=== PATIENT | female | born 1935 | race Caucasian/White ===

== ENCOUNTER → 2017-01-06 | Outpatient (CLI) | payer OTHER | END | disposition home or self-care (01) | LOC: LAB.O 15:23 | PROVIDERS: ATTEND Nurse Practitioner Family | DX: R07.9 Chest pain, unspecified (principal) ==

== ENCOUNTER → 2017-01-23 | Outpatient (CLI) | payer OTHER | END | disposition home or self-care (01) | LOC: SL 20:30 | PROVIDERS: ATTEND Obstetrics & Gynecology | DX: G47.33 Obstructive sleep apnea (adult) (pediatric) (principal) ==

== ENCOUNTER 2018-03-13 13:06 | Emergency (ER) | payer OTHER ==
--- NOTE | 2018-03-13 13:24 | ED.PDOC ---
History of Present Illness - General Chief Complaint: Trauma Stated Complaint: Lac above R eye, after fall Time Seen by Provider: 03/13/18 13:20 Source: patient, RN notes reviewed, EMS notes reviewed Additional Information: 83 YEAR OLD FELL GROUND LEVEL ON THE ROAD WHILE SHE WAS ATTEMPTED TO JUMP OVER A PUDDLE OF WATER REPORTS NO LOC HAS MODERATE HEADACHE NO NECK PAIN NO NUMBNESS TINGLING - History of Present Illness Improving Factors: nothing Worsening Factors: nothing Associated Symptoms: denies symptoms Allergies/Adverse Reactions: Allergies Codeine Allergy (Verified 02/21/14 18:56) Morphine Allergy (Verified 02/21/14 18:56) Penicillins Allergy (Verified 02/21/14 18:56) Home Medications: Ambulatory Orders Cephalexin Monohydrate [Keflex Cap] 500 mg PO Q6HRS #20 cap 02/21/14 Tramadol HCl [Ultram] 25 mg PO Q4-6H PRN #20 tab 02/21/14 Cephalexin Monohydrate [Keflex] 500 mg PO Q8HR #30 cap 03/13/18 Review of Systems - Review of Systems Constitutional: States: no symptoms reported EENTM: States: no symptoms reported Respiratory: States: no symptoms reported Cardiology: States: no symptoms reported Gastrointestinal/Abdominal: States: no symptoms reported Genitourinary: States: no symptoms reported Musculoskeletal: States: no symptoms reported Skin: States: no symptoms reported Neurological: States: no symptoms reported Endocrine: States: no symptoms reported Hematologic/Lymphatic: States: no symptoms reported Past Medical History (General) - Patient Medical History Hx Diabetes: Yes Hx Cancer: Yes Family Medical History - Family History Mother Living Status: Physical Exam - Physical Exam General Appearance: Alert, Comfortable Eye Exam: bilateral normal, bilateral abnormal EOM, bilateral abnormal pupil, bilateral conjunctivae pale, bilateral scleral icterus, bilateral other Ears, Nose, Throat: hearing grossly normal, normal ENT inspection, normal pharynx, other - THERE IS A POST TRAUMATIC HEMATOMA OVER THE RIGHT FORHEAD EXTENDING OVER THE RIGHT EYE BROW EXTRA OCULAR MOVEMENTS NORMAL NO SUB Q AIR NO DIPLOPIA AT THIS TIME Neck: non-tender, full range of motion, supple Respiratory: chest non-tender, lungs clear, normal breath sounds, no respiratory distress, no accessory muscle use Cardiovascular/Chest: normal peripheral pulses, regular rate, rhythm, no edema, no gallop, no JVD, no murmur Gastrointestinal/Abdominal: normal bowel sounds, non tender, soft, no organomegaly, no pulsatile mass, abnormal bowel sounds Back Exam: normal inspection, no CVA tenderness, no vertebral tenderness 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 Copy, Patient Portal Self Enrollment Instructions: DI for Trauma Diet: resume usual diet Referrals: Estuardo French MD [Primary Care Provider] - 1-2 Weeks Home Medications: Ambulatory Orders Cephalexin Monohydrate [Keflex Cap] 500 mg PO Q6HRS #20 cap 02/21/14 Tramadol HCl [Ultram] 25 mg PO Q4-6H PRN #20 tab 02/21/14 Cephalexin Monohydrate [Keflex] 500 mg PO Q8HR #30 cap 03/13/18 Additional Instructions: PLEASE DO NOT BLOW YOUR NOSE TAKE ANTIBIOTICS PRESCRIBED NEED ENT DR WAN ( SHE HAS SEEN HIM IN THE PAST AND OPHTHALMOLOGICAL FOLLOW UP IN A WEEK
--- NOTE | 2018-03-13 14:22 | CT ---
Study: CT of the Head. Indication: TRAUMA Technique: Axial CT images of the head were acquired without intravenous contrast. This exam was performed according to our departmental dose-optimization program, which includes automated exposure control, adjustment of the mA and/or kV according to patient size and/or use of iterative reconstruction technique. Comparison: None. Findings: Partial visualization of a buckle fracture of the inferior right orbital floor with inferior displacement of fracture fragments by 4 mm. Intramuscular hematoma of the right inferior rectus muscle suspected. Extensive surrounding right periorbital soft tissue swelling and mild subcutaneous emphysema. The right globe appears intact. Hemorrhage noted throughout the majority of the right maxillary sinus. No acute ischemia, acute hemorrhage, mass, mass effect, midline shift, or extra-axial fluid collection identified by CT. Ventricles are normal in configuration without hydrocephalus. Patchy hypoattenuation of the periventricular and subcortical white matter noted. This is nonspecific but most consistent with chronic microvascular ischemic change. Global parenchymal volume loss and intracranial atherosclerosis noted as well. Paranasal sinuses are adequately aerated. Mastoid air cells are adequately aerated. Osseous structures and soft tissues are unremarkable. Impression: 1. No acute intracranial abnormality by CT. 2. Senescent changes. 3. Right orbital floor fracture and intramuscular hematoma right inferior rectus muscle. 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
--- NOTE | 2018-03-13 14:26 | CT ---
Study: CT cervical spine. Indication: TRAUMA Technique: Axial CT images were acquired through the cervical spine without intravenous contrast. Coronal and sagittal reformats performed. This exam was performed according to our departmental dose-optimization program, which includes automated exposure control, adjustment of the mA and/or kV according to patient size and/or use of iterative reconstruction technique. Comparison: None. Findings: Vertebral body height maintained. Straightening cervical spine. No acute fracture or subluxation. Multilevel cervical disc disease noted and most pronounced at C6-C7 where there is moderate to severe disc space height loss as well as mild spinal canal narrowing and at least mild to moderate bilateral neural foraminal narrowing. Atherosclerosis carotid bulbs bilaterally. Impression: No CT evidence of acute cervical fracture. Multilevel cervical disc disease. Dedicated MRI cervical spine can better evaluate as clinically indicated. 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
--- NOTE | 2018-03-13 15:26 | CT ---
EXAM DESCRIPTION: Maxillofacial CLINICAL HISTORY: 83 years Female, TRAUMA. 83-year-old female with acute right facial trauma. COMPARISON: CT of the head from the same day. TECHNIQUE: Noncontrast multidetector CT imaging of the face was performed. Multiplanar reconstructions were generated. This exam was performed according to our departmental dose-optimization program which includes automated exposure control, adjustment of the mA and/or kV according to patient size and/or use of iterative reconstruction technique. FINDINGS: Inferior orbital blowout fracture is noted involving the right orbit. There is some mild herniation of the orbital fat through the blowout defect. No entrapped muscles are present. The medial wall is intact. The globe is intact. Right superficial periorbital soft tissue contusion. Air-fluid level within the right maxillary sinus consistent with a hematoma associated with the orbital blowout fracture. Contralateral left orbit is normal in appearance. No other facial fractures are present. IMPRESSION: Mildly depressed right inferior orbital blowout fracture. No entrapped muscles (although a clinical diagnosis). Associated right maxillary hematoma. No mass effect on the optic nerve. No retrobulbar hematoma or emphysema. Electronically signed by: Claudio Oscar MD 03/13/2018 3:25 PM IT PORTFOLIO MANAGER
[2018-03-13 16:04] VITALS: BP 106/51; TEMP 97; O2SAT 100
== END 2018-03-13 15:25 | disposition home or self-care (01) ==
LOC: ER 13:06
DX: S02.31XA Fracture of orbital floor, right side, initial encounter for closed fracture (principal); E11.9 Type 2 diabetes mellitus without complications; M50.30 Other cervical disc degeneration, unspecified cervical region; W18.39XA Other fall on same level, initial encounter; Y93.89 Activity, other specified; Y92.410 Unspecified street and highway as the place of occurrence of the external cause; Z88.5 Allergy status to narcotic agent; Z88.0 Allergy status to penicillin; Z85.9 Personal history of malignant neoplasm, unspecified